=== PATIENT | female | born 1950 | race Caucasian/White ===

== ENCOUNTER 2017-06-23 17:31 | Emergency (ER) | payer MEDICARE ==
[~2017-06-23] VITALS: Ht 154.9 cm; Wt 70.5 kg
[2017-06-23] MEDS ORDERED: ondansetron/PF 4mg/2ml inj IV ONE (18:40)
[2017-06-23] MEDS ORDERED: orphenadrine citrate 60mg/2ml inj. IM ONE (18:55)
[2017-06-23] MEDS: morphine 4 MG/ML inj SYRINge IV ONE ×2 (19:24→19:26)
[2017-06-23] MEDS ORDERED: methylPREDNISolone sod succ 125mg/2ml vial IV ONE (20:10)
[2017-06-23] MEDS ORDERED: PRED20TA PO (20:50)
[2017-06-23 21:16] LABS: CLARITY,URINE CLEAR (Clear); COLOR,URINE STRAW (Yellow); GLUCOSE, URINE NEGATIVE (Neg); KETONES,URINE NEGATIVE (Neg); LEUKOCYTE ESTERASE ,URINE NEGATIVE (Neg); NITRITES, URINE NEGATIVE (Neg); OCCULT BLOOD,URINE NEGATIVE (Neg); PH,URINE 7.5 (4.8-8.0); PROTEIN,URINE NEGATIVE (Neg); UROBILINOGEN,URINE 0.2 E.U/dL (0.2-1.0)
[2017-06-23 21:17] LABS: UA COLLECTION TYPE CLN CATCH MIDSTREAM
[2017-06-23 22:56] VITALS: BP 156/96
== END 2017-06-23 22:57 | disposition short-term general hospital (02) ==
LOC: ER 17:32
DX: G89.29 Other chronic pain (principal); M54.42 Lumbago with sciatica, left side; E78.00 Pure hypercholesterolemia, unspecified; I10 Essential (primary) hypertension; Z88.6 Allergy status to analgesic agent; Z88.0 Allergy status to penicillin; Z88.8 Allergy status to other drugs, medicaments and biological substances
CPT/HCPCS: 81003; 96372; 96374; 96375; 99285; J2270; J2360; J2405; J2930

== ENCOUNTER 2017-07-23 16:27 | Emergency (ER) | payer MEDICARE ==
[~2017-07-23] VITALS: Ht 165.1 cm; Wt 80.0 kg
[~2017-07-23 16:27] MED LIST: PRED20TA PO
[2017-07-23] MEDS ORDERED: acetaminophen 325mg tablet PO ONE ×2 (17:20→17:25)
[2017-07-23] MEDS ORDERED: LIDOcaine 1% 30ml preserv. free vial IJ STA (17:25)
[2017-07-23] MEDS ORDERED: triamcinolone acetonide 40mg/ml inj IM ONE (17:25)
[2017-07-23] MEDS ORDERED: ondansetron/PF 4mg/2ml inj IV ONE (17:30)
[2017-07-23 18:45] VITALS: BP 157/82
== END 2017-07-23 19:18 | disposition home or self-care (01) ==
LOC: ER 16:27
DX: S09.90XA Unspecified injury of head, initial encounter (principal); E78.00 Pure hypercholesterolemia, unspecified; I10 Essential (primary) hypertension; M79.7 Fibromyalgia; Z88.0 Allergy status to penicillin; G89.29 Other chronic pain; W01.0XXA Fall on same level from slipping, tripping and stumbling without subsequent striking against object, initial encounter; Y93.01 Activity, walking, marching and hiking; Y92.89 Other specified places as the place of occurrence of the external cause; Y99.8 Other external cause status
CPT/HCPCS: 70450; 71045; 72125; 99284

== ENCOUNTER 2018-02-17 20:31 | Emergency (ER) | payer MEDICARE ==
[~2018-02-17] VITALS: Ht 154.9 cm; Wt 82.0 kg
[2018-02-17] MEDS ORDERED: normal saline 1000ML IV soln IVB ONE (21:15)
[2018-02-17 22:14] VITALS: BP 132/78
== END 2018-02-17 22:15 | disposition home or self-care (01) ==
LOC: ER 20:32
DX: R42 Dizziness and giddiness (principal); T42.8X5A Adverse effect of antiparkinsonism drugs and other central muscle-tone depressants, initial encounter; T38.0X5A Adverse effect of glucocorticoids and synthetic analogues, initial encounter; E78.00 Pure hypercholesterolemia, unspecified; I10 Essential (primary) hypertension; G89.29 Other chronic pain; M79.7 Fibromyalgia; F41.9 Anxiety disorder, unspecified; F32.9 Major depressive disorder, single episode, unspecified; Z98.890 Other specified postprocedural states; Z88.1 Allergy status to other antibiotic agents; Z88.6 Allergy status to analgesic agent; Z88.0 Allergy status to penicillin; Z88.8 Allergy status to other drugs, medicaments and biological substances; Y92.9 Unspecified place or not applicable
CPT/HCPCS: 93005; 96360; 99284; J7030

== ENCOUNTER 2018-11-19 12:51 | Day surgery (SDC) | payer MEDICARE ==
[~2018-11-19] VITALS: Ht 156.2 cm; Wt 65.0 kg
[2018-11-19 13:00] VITALS: BP 127/55
[2018-11-19] MEDS ORDERED: ATOR20TA PO (13:07)
[2018-11-19] MEDS ORDERED: LORA0.5T PO (13:11)
[2018-11-19] MEDS ORDERED: MAGN400C PO (13:13)
[2018-11-19] MEDS ORDERED: MELA3TAB PO (13:15)
[2018-11-19] MEDS ORDERED: MONT10TA21 PO (13:16)
[2018-11-19] MEDS ORDERED: propanolol (13:16)
[2018-11-19] MEDS ORDERED: BUPR75TA12 (13:17)
[2018-11-19] MEDS ORDERED: METO5TAB85 (13:18)
[2018-11-19] MEDS ORDERED: DULO-31 PO (13:18)
[2018-11-19] MEDS ORDERED: TRAM50TA2 PO (13:19)
[2018-11-19] MEDS ORDERED: PREG50CA PO (13:20)
[2018-11-19] MEDS ORDERED: LACTC PO (13:21)
[2018-11-19] MEDS ORDERED: CIPR-260 PO (13:22)
[2018-11-19] MEDS ORDERED: CYCL10TA26 PO (13:25)
[2018-11-19] MEDS ORDERED: RIVA20TA PO (13:26)
[2018-11-19] MEDS ORDERED: ACET-2119 PO (13:27)
[2018-11-19] MEDS ORDERED: ALBU2.5V13 NEB (13:27)
[2018-11-19] MEDS ORDERED: HYDR-3686 PO (13:28)
[2018-11-19] MEDS ORDERED: OMEP40CA37 PO (13:29)
[2018-11-19] MEDS ORDERED: ARFO15VI3 NEB (13:30)
[2018-11-19] MEDS ORDERED: ONDA4TAB6 PO (13:31)
== END 2018-11-19 15:30 | disposition home or self-care (01) ==
LOC: GI LAB 12:51
PROVIDERS: ATTEND Internal Medicine Gastroenterology
DX: Z43.1 Encounter for attention to gastrostomy (principal)
CPT/HCPCS: A6449; G0463

== ENCOUNTER 2021-08-12 09:29 | Emergency (ER) | payer MEDICARE ==
[~2021-08-12] VITALS: Ht 157.5 cm; Wt 81.8 kg
[~2021-08-12 09:29] MED LIST changes: +ACET-2119 PO; +ALBU2.5V13 NEB; +ARFO15VI3 NEB; +ATOR20TA PO; +BUPR-297; +CIPR-260 PO; +CYCL10TA26 PO; +DULO-31 PO; +HYDR-3686 PO; +LACTC PO; +LORA0.5T PO; +MAGN400C PO; +MELA3TAB39 PO; +METO5TAB85; +MONT10TA21 PO; +OMEP40CA21 PO; +ONDA4TAB6 PO; -PRED20TA PO; +PREG50CA PO; +RIVA20TA PO; +TRAM50TA2 PO; +propanolol
[2021-08-12] MEDS ORDERED: predniSONE 20 mg tablet PO ONE (11:10)
[2021-08-12] MEDS ORDERED: PRED20TA PO (11:10)
[2021-08-12 11:31] VITALS: BP 153/78
== END 2021-08-12 12:22 | disposition home or self-care (01) ==
LOC: ER 09:30
DX: R22.0 Localized swelling, mass and lump, head (principal); T45.0X5A Adverse effect of antiallergic and antiemetic drugs, initial encounter; T44.5X5A Adverse effect of predominantly beta-adrenoreceptor agonists, initial encounter; E78.00 Pure hypercholesterolemia, unspecified; I10 Essential (primary) hypertension; G89.29 Other chronic pain; M79.7 Fibromyalgia; Z88.8 Allergy status to other drugs, medicaments and biological substances; Z88.0 Allergy status to penicillin; Z88.5 Allergy status to narcotic agent; Z79.2 Long term (current) use of antibiotics; Z79.899 Other long term (current) drug therapy; Y92.89 Other specified places as the place of occurrence of the external cause
CPT/HCPCS: 99283; J7512

== ENCOUNTER 2021-08-26 11:37 | Emergency (ER) | payer MEDICARE ==
[~2021-08-26] VITALS: Ht 154.9 cm; Wt 81.8 kg
[2021-08-26] MEDS ORDERED: EPIN0.1521 IM (14:55)
[2021-08-26 15:14] VITALS: BP 129/52
== END 2021-08-26 15:15 | disposition home or self-care (01) ==
LOC: ER 11:38
DX: T78.1XXA Other adverse food reactions, not elsewhere classified, initial encounter (principal); E78.00 Pure hypercholesterolemia, unspecified; I10 Essential (primary) hypertension; G89.29 Other chronic pain; F32.A Depression, unspecified; Z98.890 Other specified postprocedural states; Z88.6 Allergy status to analgesic agent; Z88.0 Allergy status to penicillin; Z88.1 Allergy status to other antibiotic agents; Z88.5 Allergy status to narcotic agent; Z79.2 Long term (current) use of antibiotics; Z79.899 Other long term (current) drug therapy; Y92.89 Other specified places as the place of occurrence of the external cause
CPT/HCPCS: 99283

== ENCOUNTER 2022-12-19 04:26 | Emergency (ER) | payer MEDICARE ==
[~2022-12-19] VITALS: Ht 157.5 cm; Wt 103.0 kg
[~2022-12-19 04:26] MED LIST changes: +EPIN0.1521 IM; +MONT-47 PO; -MONT10TA21 PO
[2022-12-19] MEDS ORDERED: triamcinolone acetonide 40mg/ml inj IM ONE (05:05)
[2022-12-19] MEDS ORDERED: EPIN0.3P3 IM (05:06)
[2022-12-19 05:40] VITALS: BP 165/99; PULSE 68; RESP 16; O2SAT 98
== END 2022-12-19 05:47 | disposition home or self-care (01) ==
LOC: ER 04:27
DX: T78.49XA Other allergy, initial encounter (principal); E78.00 Pure hypercholesterolemia, unspecified; I10 Essential (primary) hypertension; Z88.1 Allergy status to other antibiotic agents; Z88.0 Allergy status to penicillin; Z88.6 Allergy status to analgesic agent; Z79.1 Long term (current) use of non-steroidal anti-inflammatories (NSAID); Z79.2 Long term (current) use of antibiotics; Z79.899 Other long term (current) drug therapy; X58.XXXA Exposure to other specified factors, initial encounter
CPT/HCPCS: 96372; 99283; J3301